=== PATIENT | male | born 1990 | race Caucasian/White ===

== ENCOUNTER 2016-12-10 01:31 | Emergency (ER) | payer BC, OTHER ==
--- NOTE | 2016-12-10 01:50 | EDM.PDOC ---
ED HPI GENERAL MEDICAL PROBLEM - General Chief Complaint: Drug or Alcohol Abuse Stated Complaint: OVERDOSE Time Seen by Provider: 12/10/16 01:47 Source of Information: Reports: Patient History Limitations: Reports: No Limitations - History of Present Illness INITIAL COMMENTS - FREE TEXT/NARRATIVE: c/o unresponsive pt states he was using meth and heroin tonight, he was a unresponsive and a friend called EMS, his RR was 3 when EMS arrived, he was given Narcan and was fully alert and cooperative on arrival here no other c/o no pain, no sob, no n/v states he has not had an OD in the past - Related Data Allergies Allergy/AdvReac Type Severity Reaction Status Date / Time No Known Allergies Allergy Verified 12/10/16 01:42 Home Meds: Home Meds NK [No Known Home Meds] 12/08/15 [History] Past Medical History - Past Health History Medical/Surgical History: Denies Medical/Surgical History Gastrointestinal History: Reports: Pancreatitis Psychiatric History: Reports: Anxiety - Infectious Disease History Infectious Disease History: Reports: Chicken Pox Social & Family History - Family History Family Medical History: Noncontributory - Tobacco Use Smoking Status *Q: Current Every Day Smoker Years of Tobacco use: 15 Packs/Tins Daily: 0.3 Used Tobacco, but Quit: No Second Hand Smoke Exposure: Yes - Alcohol Use Days Per Week of Alcohol Use: 7 Number of Drinks Per Day: 4 Total Drinks Per Week: 28 - Recreational Drug Use Recreational Drug Use: Yes Drug Use in Last 12 Months: Yes Recreational Drug Type: Reports: Marijuana/Hashish Recreational Drug Use Frequency: Rarely ED ROS GENERAL - Review of Systems Review Of Systems: See Below Constitutional: Reports: No Symptoms HEENT: Reports: No Symptoms Respiratory: Reports: No Symptoms Cardiovascular: Reports: No Symptoms Endocrine: Reports: No Symptoms GI/Abdominal: Reports: No Symptoms : Reports: No Symptoms Musculoskeletal: Reports: No Symptoms Skin: Reports: No Symptoms Neurological: Reports: No Symptoms Psychiatric: Reports: No Symptoms Hematologic/Lymphatic: Reports: No Symptoms Immunologic: Reports: No Symptoms ED EXAM, GENERAL - Physical Exam Exam: See Below Exam Limited By: No Limitations General Appearance: Alert, WD/WN, No Apparent Distress Ears: Normal External Exam, Normal Canal Nose: Normal Inspection, Normal Mucosa, No Blood Throat/Mouth: Normal Inspection, Normal Lips, Normal Voice, No Airway Compromise Head: Atraumatic, Normocephalic Neck: Normal Inspection, Supple, Non-Tender, Full Range of Motion Respiratory/Chest: No Respiratory Distress, Lungs Clear, Normal Breath Sounds, No Accessory Muscle Use, Chest Non-Tender Cardiovascular: Regular Rate, Rhythm, No Edema, No Gallop, No JVD, No Murmur, No Rub GI/Abdominal: Soft, Non-Tender, No Distention, No Mass Back Exam: Normal Inspection, Full Range of Motion, NT Extremities: Normal Inspection, Normal Range of Motion, Non-Tender, No Pedal Edema Neurological: Alert, Oriented, CN II-XII Intact, Normal Cognition, No Motor/ Sensory Deficits Psychiatric: Normal Affect, Normal Mood Skin Exam: Warm, Dry, Intact, Normal Color, No Rash, Other (track norton at L antecubital fossa) Lymphatic: No Adenopathy Course - Vital Signs Last Recorded V/S: Last Vital Signs Temp 36.6 C 12/10/16 01:35 Pulse 99 12/10/16 02:01 Resp 19 12/10/16 02:01 BP 125/78 12/10/16 02:01 Pulse Ox 99 12/10/16 02:01 - Orders/Labs/Meds Labs: Laboratory Tests 12/10/16 12/10/16 Range/Units 02:10 02:10 WBC 7.1 (4.5-12.0) X10-3/uL RBC 4.87 (4.30-5.75) x10(6)uL Hgb 14.5 (11.5-15.5) g/dL Hct 43.1 (30.0-51.3) % MCV 88.6 (80-96) fL MCH 29.8 (27.7-33.6) pg MCHC 33.7 (32.2-35.4) g/dL RDW 13.6 (11.5-15.5) % Plt Count 190 (125-369) X10(3)uL MPV 7.6 (7.4-10.4) fL Neut % (Auto) 78.7 (46-82) % Lymph % (Auto) 14.1 (13-37) % Mcminn % (Auto) 5.5 (4-12) % Eos % (Auto) 1 (1.0-5.0) % Baso % (Auto) 1 (0-2) % Neut # (Auto) 5.6 (1.6-8.3) # Lymph # (Auto) 1.0 (0.6-5.0) # Mcminn # (Auto) 0.4 (0.0-1.3) # Eos # (Auto) 0.1 (0.0-0.8) # Baso # (Auto) 0.0 (0.0-0.2) # Sodium 138 (135-145) mmol/L Potassium 3.9 (3.5-5.3) mmol/L Chloride 101 (100-110) mmol/L Carbon Dioxide 29 (23-29) mmol/L BUN 14 (5-20) mg/dL Creatinine 1.0 (0.6-1.3) mg/dL Est Cr Clr Drug Dosing 122.87 mL/min Estimated GFR (MDRD) > 60 (>60) BUN/Creatinine Ratio 14.0 (9-20) Glucose 132 H (80-116) mg/dL Calcium 9.0 (8.6-10.2) mg/dL Total Bilirubin 0.4 (0.1-1.3) mg/dL AST 38 H D (5-27) IU/L ALT 39 H D (14-26) IU/L Alkaline Phosphatase 82 (56-112) IU/L Total Protein 7.6 (6.0-8.0) g/dL Albumin 4.2 (3.5-5.2) g/dL Globulin 3.4 g/dL Albumin/Globulin Ratio 1.2 - Re-Assessments/Exams Free Text/Narrative Re-Assessment/Exam: 12/10/16 03:00 labs neg, s.o. present, pt informed he needs to enter a drug rehab program Departure - Departure Time of Disposition: 03:01 Disposition: Home, Self-Care 01 Condition: good Clinical Impression: Heroin overdose, Near- experience, Elevated liver function tests - Discharge Information Instructions: Finding Treatment for Addiction, Opioid Overdose Forms: ED Department Discharge Additional Instructions: Do not use heroin or other street drugs. You are fortunate to be alive. See your primary care physician in 1-2 days. You should enter a drug treatment program, which your physician can arrange. Call your Physician or Return to Emergency Department if: * Your condition worsens in any way. * You develop fever greater than 100.4. * You have vomitting that does not stop with medications. * You have pain that is not controlled with medications.
[2016-12-10 03:08] VITALS: BP 152/72
== END 2016-12-10 03:08 | disposition home or self-care (01) ==
LOC: FB.ED 01:31
DX: T40.1X1A Poisoning by heroin, accidental (unintentional), initial encounter (principal); R79.89 Other specified abnormal findings of blood chemistry; F17.210 Nicotine dependence, cigarettes, uncomplicated
CPT/HCPCS: 36415; 80053; 85025; 99284

== ENCOUNTER 2024-11-30 07:38 | Emergency (ER) | payer OTHER ==
[2024-11-30 08:00] LABS: BASOPHILS ABSOLUTE AUTO 0.1 x10-3/uL (0.0-0.3); BASOPHILS PERCENT AUTO 0.7 % (0.3-3.8); EOSINOPHILS ABSOLUTE AUTO 0.4 x10-3/uL (0.0-0.6); EOSINOPHILS PERCENT AUTO 4.5 % (0.1-6.8); HEMATOCRIT 41.9 % (38.3-50.1); HEMOGLOBIN 14.5 g/dL (12.9-17.7); LYMPHOCYTES ABSOLUTE AUTO 3.2 x10-3/uL (0.5-4.5); LYMPHOCYTES PERCENT AUTO 39.8 % (15.8-45.3); MEAN CORPUSCULAR HEMOGLOBIN 30.5 pg (27.0-33.3); MEAN CORPUSCULAR HGB CONC 34.7 g/dL (28.7-35.3); MEAN CORPUSCULAR VOLUME 87.8 fL (80.8-98.7); MEAN PLATELET VOLUME 8.5 fL (6.7-11.0); MONOCYTES ABSOLUTE AUTO 0.7 x10-3/uL (0.0-1.2); NEUTROPHILS ABSOLUTE AUTO 3.7 x10-3/uL (1.7-6.9); PLATELET COUNT,PLT 263 x10(3)uL (117-477); RED BLOOD CELL COUNT 4.77 x10(6)uL (3.90-5.90); RED CELL DISTRIBUTION WIDTH 13.5 % (12.4-15.0); WHITE BLOOD CELL COUNT,WBC 8.1 x10-3/uL (3.2-10.1)
[2024-11-30 08:05] LABS: BLOOD UREA NITROGEN,BUN 15 mg/dL (7-18); CALCIUM 8.8 mg/dL (8.6-10.2); CARBON DIOXIDE,CO2 26 mmol/L (21-32); CHLORIDE,CL 105 mmol/L (100-110); ESTIMATED GFR 101 mL/min (>60); GLUCOSE RANDOM 138 mg/dL (80-116); POTASSIUM,K 3.4 mmol/L (3.5-5.3); SODIUM,NA 138 mmol/L (135-145)
[2024-11-30 08:11] LABS: A/G RATIO 1.3; ALANINE AMINOTRANSFERASE,ALT 41 U/L (12-36); ALBUMIN 4.2 g/dL (3.5-5.2); ALKALINE PHOSPHATASE 60 IU/L (56-112); ASPARTATE AMNIOTRANSFERASE,AST 31 IU/L (5-25); BILIRUBIN TOTAL 0.5 mg/dL (0.1-1.3); PROTEIN TOTAL,TP 7.5 g/dL (6.0-8.0)
[2024-11-30] MEDS: Diphtheria,Pertussis(Acell),Tetanus Vaccine 0.5 ML Syringe IM ONE (08:27)
[2024-11-30] MEDS: Iopamidol 755 Mg/ML 100 ML Bottle IV SCH (08:27)
[2024-11-30] MEDS: HYDROmorphone 2 MG/ML SDV IVPUSH ONE (08:27)
[2024-11-30 08:39] VITALS: PULSE 100
[2024-11-30 08:43] VITALS: BP 111/73
[2024-11-30] MEDS: Ketorolac 30 MG/ML SDV IVPUSH ONE (09:06)
[2024-11-30] MEDS: Potassium Chloride 20 MEQ Tab.ER PO ONE (09:07)
[2024-11-30 09:46] LABS: BILIRUBIN,URINE NEGATIVE (NEGATIVE); GLUCOSE,URINE NORMAL (NORMAL); KETONES,URINE NEGATIVE (NEGATIVE); LEUKOCYTE ESTERASE,URINE NEGATIVE (NEGATIVE); NITRITE,URINE NEGATIVE (NEGATIVE); OCCULT BLOOD,URINE NEGATIVE (NEGATIVE); PROTEIN,URINE 30 mg/dL (NEGATIVE); UROBILINOGEN,URINE NORMAL (NEGATIVE)
[2024-11-30 09:56] LABS: APPEARANCE,URINE CLEAR (CLEAR); COLOR,URINE YELLOW (YELLOW); RBC,URINE 0-5 (0-5); SQUAMOUS EPITHELIAL CELLS,UR OCCASIONAL (NS,R,O); WBC,URINE 0-5 (0-5)
[2024-11-30 09:57] LABS: BACTERIA,URINE OCCASIONAL (NS)
[2024-11-30 09:58] LABS: AMPHETAMINES SCREEN, URINE POSITIVE (NEGATIVE); BARBITURATE SCREEN,URINE NEGATIVE (NEGATIVE); BENZODIAZEPINES SCREEN,URINE NEGATIVE (NEGATIVE); METHADONE SCREEN, URINE NEGATIVE (NEGATIVE); METHAMPHETAMINE SCREEN, URINE POSITIVE (NEGATIVE); OXYCODONE SCREEN,URINE NEGATIVE (NEGATIVE); THC SCREEN,URINE POSITIVE (NEGATIVE)
[2024-11-30 09:59] LABS: BUPRENORPHINE SCREEN,URINE NEGATIVE (NEGATIVE)
== END 2024-11-30 09:30 | disposition home or self-care (01) ==
LOC: FB.ED 07:38
DX: S50.02XA Contusion of left elbow, initial encounter (principal); S00.81XA Abrasion of other part of head, initial encounter; S30.810A Abrasion of lower back and pelvis, initial encounter; E83.51 Hypocalcemia; I88.9 Nonspecific lymphadenitis, unspecified; Z79.899 Other long term (current) drug therapy; W01.0XXA Fall on same level from slipping, tripping and stumbling without subsequent striking against object, initial encounter
CPT/HCPCS: 36415; 70450; 71260; 72125; 73080; 74177; 80053; 80307; 81001; 85025; 90471; 90715; 96374; 96375; 99285; A9270; J1171; J1885; Q9967; 99284